=== PATIENT | female | born 1980 | race Caucasian/White ===

== ENCOUNTER 2016-06-28 09:48 | Emergency (ER) | payer OTHER ==
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
[~2016-06-28 09:48] MED LIST: ACYCLOVIR400 MG PO; DENAVIR 1% TOP; HYDROXYZINE PAM25 MG PO; PRENATAL VITAMI1 TA3; SYNTHROID; SYNTHROID PO; TOPAMAX
== END 2016-06-28 12:50 | disposition home or self-care (01) ==
LOC: CED 09:48
DX: S33.5XXA Sprain of ligaments of lumbar spine, initial encounter (principal); S20.219A Contusion of unspecified front wall of thorax, initial encounter; Z88.0 Allergy status to penicillin; Z88.8 Allergy status to other drugs, medicaments and biological substances; V43.52XA Car driver injured in collision with other type car in traffic accident, initial encounter; Y92.410 Unspecified street and highway as the place of occurrence of the external cause
CPT/HCPCS: 71020; 72100; 84703; 99284

== ENCOUNTER → 2016-07-24 | Outpatient (CLI) | payer OTHER, BC ==
[~2016-07-24] MED LIST changes: +DEPO-PROVE150 MG/11
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
== END | disposition home or self-care (01) ==
LOC: SMRI 15:00 → CMRI 15:00 → SMRI 15:08 → CMRI 07-25 17:00
DX: S39.012A Strain of muscle, fascia and tendon of lower back, initial encounter (principal); M53.3 Sacrococcygeal disorders, not elsewhere classified; M51.36 Other intervertebral disc degeneration, lumbar region; G95.19 Other vascular myelopathies; N85.9 Noninflammatory disorder of uterus, unspecified
CPT/HCPCS: 72148; 72195

== ENCOUNTER 2016-10-08 10:31 | Emergency (ER) | payer BC ==
--- NOTE | ~2016-10-08 | CT71 ---
[facility] A Service [facility] RADIOLOGY TEXT RESULTS PATIENT: BRIANNA TALLEY LOCATION: [facility] : 84 UNIT #: [id number] AGE: [address]: Mame Gonzalez MD SEX: F ORDER DR: [id number] [address] [address] [id number] E MR#: [id number] Acc #: [id number] NAME: BRIANNA TALLEY : 1980 SEX: F STUDY DATE/TIME: 10/08/2016 14:09 UNIT: [facility] ROOM: STUDY DESCRIPTION: CT Head Wo Contrast Attending Physician: Mame Gonzalez M.D. Ordering Physician: Mame Gonzalez M.D. Primary Care Physician: Shirley Villaseñor M.D. MEDICAL IMAGING REPORT This report is preliminary unless electronic signature is present. EXAM CT head 10/08/2016 HISTORY Headache for 3 weeks, headache for weeks. Migraine for 2 days. Dizzy, vomiting this a.m. History of migraines. TECHNIQUE This CT exam was performed with one or more of the following radiation dose reduction techniques: automatic control, adjustment of mA and/or kV according to patient size, and iterative reconstruction. FINDINGS CT head performed skull base through vertex without intravenous contrast. Comparison 12/26/2005. Brainstem unremarkable. Cerebellum and cerebral hemispheres show normal clemente matter - white matter differentiation. No hemorrhage. No evidence of acute cortical ischemia. Midline structures nondisplaced. Basal ganglia tact. Ventricles, cisterns, sulci normal in size and contour. No intra or extraaxial mass effect. No abnormal intracranial fluid collection. The intraorbital soft tissues are unremarkable. Visualized paranasal sinuses and mastoid air cells clear. No fracture. IMPRESSION 1. Normal CT head. If the patient has ongoing neurologic symptoms, consider follow up imaging. Dictated by... Vimal Nair M.D. [facility] A Service of [facility] / [facility] RADIOLOGY TEXT RESULTS PATIENT: BRIANNA TALLEY LOCATION: [facility] : 84 UNIT #: [id number] AGE: [address]: Mame Gonzalez MD SEX: F ORDER DR: THIS IS AN ELECTRONICALLY VERIFIED REPORT Vimal Nair M.D. at 10/09/2016 7:53 PM EMMA/amos TD: 10/08/2016 18:38 JOB #: [id number] MEDICAL IMAGING REPORT Page 1 of 1
[~2016-10-08 10:31] MED LIST changes: -DEPO-PROVE150 MG/11
[2016-10-08] MEDS ORDERED: DEPO-PROVE150 MG/11 (10:42)
[2016-10-08] MEDS ORDERED: TOPAMAX (10:42)
[2016-10-08] MEDS ORDERED: SYNTHROID (10:42)
[2016-10-08 12:39] LABS: BASOPHIL% 0.3 % (0-2.5); EOSINOPHIL% 0.4 % (0.0-7.0); HEMATOCRIT 37.5 % (35.0-45.0); HEMOGLOBIN 12.4 gm/dL (12.0-16.0); LYMPHOCYTE# 1.5 X10e3 (1.0-3.5); MEAN CELL VOLUME 86.3 FL (83-96); MEAN CORPUSCULAR HEMOGLOBIN 28.6 PG (28-34); MEAN CORPUSCULAR HGB CONC 33.2 g/dL (30-36); MEAN PLATELET VOLUME 9.4 FL (6.5-11.5); MONOCYTE# 0.5 X10e3 (0-1.0); NEUTROPHIL# 7.1 X10e3 (1.5-7.1); NEUTROPHIL% 78.3 % (40-75); PLATELET COUNT 219 X10e3 (140-420); RED BLOOD COUNT 4.35 X10e (3.90-5.30); RED CELL DISTRIBUTION WIDTH 14.5 % (11.0-15.5); WHITE BLOOD COUNT 9.1 X10e3 (4.0-10.5)
[2016-10-08 13:07] LABS: URINE APPEARANCE CLEAR; URINE BILIRUBIN NEG (NEG); URINE BLOOD TRACE-INTACT (NEG); URINE COLOR YELLOW; URINE GLUCOSE NEG (NORM); URINE KETONE TRACE (NEG); URINE LEUKOCYTE ESTERASE 2+ (NEG); URINE NITRATE NEG (NEG); URINE PH 5.5 (5-8); URINE PROTEIN NEG (NEG); URINE SOURCE CLEAN CATCH; URINE SPECIFIC GRAVITY 1.025 (1.003-1.035)
[2016-10-08 13:51] LABS: DIFF IND NO
[2016-10-08 13:52] LABS: CULTURE INDICATED? NO; MICRO INDICATED? YES; URINE BACTERIA NEG (NEG); URINE RBC 0-2 /[HPF] (0-2); URINE SQUAMOUS EPITHELIAL CELL FEW /[HPF]; URINE WBC 0-2 /[HPF] (0-5)
[2016-10-08 13:53] LABS: URINE MUCUS PRESENT
[2016-10-08 13:55] LABS: BUN/CREATININE RATIO 13.33; CALCIUM SERUM 8.8 mg/dL (8.4-10.2); CREATININE SERUM 0.9 mg/dL (0.6-1.4); GLOM FILT RATE Estimated 83.5 mL/min (>60); POTASSIUM 3.8 mmol/L (3.5-5.1)
== END 2016-10-08 15:19 | disposition home or self-care (01) ==
LOC: SED 10:31
PROVIDERS: Emergency Medicine
DX: G43.909 Migraine, unspecified, not intractable, without status migrainosus (principal); Z88.0 Allergy status to penicillin; Z88.1 Allergy status to other antibiotic agents
CPT/HCPCS: 36415; 70450; 80048; 81003; 84703; 85025; 96361; 96374; 96375; 99284; J1200; J1885; J2550